=== PATIENT | female | born 1940 | race Caucasian/White ===

== ENCOUNTER 2016-03-09 08:35 | Day surgery (SDC) | payer MEDICARE, OTHER ==
[2016-03-09 09:17] LABS: ABSOLUTE NEUTROPHIL COUNT 7.7 K/mm3 (1.8-7.7); BASO # 0.1 K/mm3 (0.0-0.2); BASO % 0.5 % (0.2-1.0); EOS # 0.1 (0.0-0.5); EOS % 0.9 % (0.9-2.9); HEMATOCRIT 46.5 % (37.0-47.0); HEMOGLOBIN 15.8 gm/l (12.0-16.0); IMM NEUT # 0.1 K/mm3 (0-0.2); IMM NEUT% 0.7 % (0-1); LYMPH # 1.4 (1.0-4.8); LYMPH % 14.1 % (15-45); MEAN CELL VOLUME 87.2 fl (81.0-99.0); MEAN CORPUSCULAR HEMOGLOBIN 29.6 pg (27.0-31.0); MONO # 0.7 (0.0-0.8); MONO % 6.8 % (4-12); PLATELET COUNT 223 K/mm3 (130-400); RED CELL DISTRIBUTION WIDTH 13.1 % (11.5-14.5)
[2016-03-09 09:36] LABS: ALB/GLOB RATIO 1.3 (>1.0); CALCIUM 9.2 mg/dL (8.6-10.3)
[2016-03-09] MEDS ORDERED: SODIUM CHLORIDE 0.9% 1,000 ML ONE (09:39)
[2016-03-09] MEDS ORDERED: ONDANSETRON 4 MG/2ML 2 ML VIAL ONE ×2 (09:39→16:48)
[2016-03-09] MEDS ORDERED: MORPHINE SULFATE 4 MG/ML SYRINGE ONE (09:39)
[2016-03-09] MEDS ORDERED: PIPERACILLIN-TAZO PREMIX BAG 50 ML IV ONE (09:40)
[2016-03-09] MEDS ORDERED: MORPHINE SULFATE 10 MG/ML SYRINGE IV PRN ×2 (10:20→21:42)
[2016-03-09] MEDS ORDERED: ONDANSETRON 4 MG/2ML 2 ML VIAL IV PRN ×3 (10:20→19:52)
[2016-03-09] MEDS ORDERED: MORPHINE SULFATE 2 MG/ML SYRINGE IV PRN (10:20)
[2016-03-09] MEDS ORDERED: LACTATED RINGERS 1,000 ML ONE ×2 (10:38→16:27)
[2016-03-09] MEDS ORDERED: SODIUM CHLORIDE 0.9% FLUSH 10 ML ONE ×2 (10:39→16:26)
[2016-03-09] MEDS ORDERED: SODIUM CHLORIDE 0.9% 50 ML ONE ×2 (10:39→16:27)
[2016-03-09] MEDS ORDERED: BUPIVACAINE 0.5% W/EPI SDV 30 ML VIAL ONE ×2 (10:39→16:26)
[2016-03-09] MEDS ORDERED: IOPAMIDOL 300 (61%) 30 ML SDV ONE ×2 (10:39→16:27)
[2016-03-09] MEDS ORDERED: CEFOTAXIME SODIUM 1,000 MG VIAL ONE ×2 (10:39→16:26)
[2016-03-09] MEDS ORDERED: MORPHINE SULFATE 4 MG/ML SYRINGE IV PRN ×3 (11:29→21:41)
[2016-03-09] MEDS ORDERED: MORPHINE SULFATE 10 MG/ML SYRINGE ONE ×2 (12:37→17:56)
--- NOTE | 2016-03-09 13:47 | RAD ---
03/09/2016 1:43 PM CHEST-AP BEDSIDE History: Preop chest x-ray Comparison: 02/18/2016 Findings: Single AP view of the chest is obtained. The lungs are clear with out effusion or pneumothorax. The cardiomediastinal silhouette demonstrate mild cardiomegaly. The osseous structures are intact.. IMPRESSION: No acute intrathoracic process.
[2016-03-09] MEDS: PIPERACILLIN-TAZO PREMIX BAG 50 ML IV SCH ×2 (16:05→20:09)
[2016-03-09] MEDS ORDERED: FENTANYL 100 MCG/2 ML VIAL ONE ×2 (16:31→17:26)
[2016-03-09] MEDS ORDERED: PROPOFOL 20 ML IV ONE (16:48)
[2016-03-09] MEDS ORDERED: FAMOTIDINE 10 MG/ML 2ML VIAL ONE (16:48)
[2016-03-09] MEDS ORDERED: ROCURONIUM BROMIDE 10 MG/ML DOSE IV ONE (16:48)
[2016-03-09] MEDS ORDERED: METOCLOPRAMIDE HCL 5 MG/ML 2ML VIAL ONE (16:48)
[2016-03-09] MEDS ORDERED: LABETALOL HCL 5 MG/ML 20ML VIAL IV PRN (17:07)
[2016-03-09] MEDS ORDERED: ATROPINE SULFATE 0.4 MG/1 ML VIAL IV PRN (17:07)
[2016-03-09] MEDS ORDERED: MEPERIDINE 25 MG/ML SYRINGE IV PRN (17:07)
[2016-03-09] MEDS ORDERED: PROMETHAZINE HCL 25 MG/ML VIAL IM PRN (17:07)
[2016-03-09] MEDS ORDERED: NALOXONE HCL 0.4 MG/ML VIAL IV PRN (17:07)
[2016-03-09] MEDS ORDERED: LACTATED RINGERS 1,000 ML IV SCH (17:15)
[2016-03-09] MEDS ORDERED: LEVOTHYROXINE SODIUM 175 MCG TABLET PO SCH (19:52)
[2016-03-09] MEDS ORDERED: IBUPROFEN 200 MG TABLET PO PRN (19:52)
[2016-03-09] MEDS ORDERED: OXYCODONE HCL 5 MG TABLET PO PRN (19:52)
[2016-03-09 21:03] VITALS: BMI 33.2
[2016-03-09] MEDS ORDERED: PUMP TUBING ONE (22:19)
[2016-03-09] MEDS: PIPERACILLIN-TAZO PREMIX BAG 3.375 G in Premix (D5W) 50 ml 1 EACH IV SCH (22:25)
[2016-03-09] MEDS: LACTATED RINGERS 1,000 ML IV SCH (22:26)
--- NOTE | 2016-03-09 23:38 | HP ---
MARGA JEAN-BAPTISTE [facility] [id number] DATE OF SERVICE: 03/09/2016 CHIEF COMPLAINT: Abdominal pain. HISTORY OF PRESENT ILLNESS: Marga Jean-Baptiste is a 75-year-old female who presented to the emergency room with a four day history of abdominal pain. She was seen by her primary care physician three days ago. He ordered an ultrasound for today. The ultrasound results showed gallbladder wall thickening and pericholecystic fluid, consistent with acute cholecystitis. Because of those findings she was sent to the emergency room for evaluation. After evaluation by the emergency room physician, surgery was consulted. She reports that she has had some fever. She has had some nausea and dry heaves. No diarrhea. PAST MEDICAL HISTORY: 1. Hypertension. 2. Asthma. 3. Sleep apnea. PAST SURGICAL HISTORY: Includes: 1. Thyroid surgery. 2. Hysterectomy. 3. Tubal ligation. 4. Right arm surgery. 5. Tonsillectomy. CURRENT MEDICATIONS: 1. Cephalexin 500 by mouth four times a day. 2. Levsin 0.125 mg sublingual as needed. 3. Ibuprofen 400 mg every four to six hours as needed. 4. Synthroid 175 mcg daily. 5. Lisinopril 40 mg daily. 6. Symbicort. 7. Flonase. 8. Aspirin 81 mg daily. 9. Amlodipine 10 mg daily. ALLERGIES: Antihistamines. She says Benadryl, Celebrex, codeine, prednisone, sulfa, Tylenol and Vicodin. FAMILY HISTORY: Noncontributory. SOCIAL HISTORY: She is . Denies alcohol, tobacco or drug use. REVIEW OF SYSTEMS: Constitutional - possible fevers. HEENT - eyes, no complaints. Ears, nose and throat, no complaints. Cardiac - no complaints. Pulmonary - she has some asthma. She also has apparently had an episode of influenza a couple of weeks ago that completely resolved. GI - as above. - no complaints. Gynecologic - no complaints. Musculoskeletal - no complaints. Neurologic - no complaints. Endocrine - no complaints. Hematologic - no complaints. Psychiatric - no complains. PHYSICAL EXAMINATION: VITAL SIGNS: Temp 98.6. Pulse 104. Blood pressure 137/68. Respirations 18. GENERAL: She is awake and alert. She appears uncomfortable, but in no acute distress. HEENT: Head is normocephalic, atraumatic. Eyes, pupils equal. Sclera nonicteric. Oropharynx without exudate or erythema. She has her dentures out. NECK: Supple, without lymphadenopathy or thyromegaly. LUNGS: Clear to auscultation bilaterally. Normal respiratory effort. HEART: Regular rate and rhythm. No murmurs heard. ABDOMEN: Obese, soft and nondistended. She is tender in the right upper quadrant. She has a Guzman's sign. No masses are palpable, although there is some fullness up in that area. She has a low transverse scar, without obvious hernia. EXTREMITIES: Without cyanosis, clubbing or edema. NEUROLOGIC: She is alert and oriented. Sensation grossly intact throughout all extremities. PSYCHIATRIC: Shows no signs of anxiety or depression. She appears able to make informed medical decisions. LABORATORY: Sodium 135, potassium 3.4, chloride 102, carbon dioxide 24, BUN is 13, creatinine 1.0, glucose is 90, total bilirubin is 0.6, AST is 13, ALT is 12, alkaline phosphatase is 75, albumin 4.0, amylase 67 and lipase 51. White blood cell count is 10.0, hemoglobin 15.8 and platelets are 223. ASSESSMENT: 1. Acute acalculous cholecystitis. 2. Hypertension. 3. Asthma. 4. Sleep apnea. 5. Obesity. PLAN: I have recommended cholecystectomy for which we discussed the procedure of laparoscopic and possible open cholecystectomy. We discussed the risks of bleeding, infection, injury to the liver and common bile duct and the possible need to convert to an open procedure. She expressed understanding and gives informed consent. At present our hospital is without inpatient beds. I am told that we will have an inpatient bed available this afternoon. We will make sure that that is the case before taking her to surgery. If she has complications related to her hypertension and asthma, will consult with the hospitalists. We will see if she can get her CPAP to treat her sleep apnea. cc: Dr. Benjamin Arcos
[2016-03-10] MEDS: ALBUTEROL/IPRATROPIUM 2.5/0.5 MG 3 ML/EACH DOSE NEB SCH ×2 (01:16→06:26)
[2016-03-10] MEDS: MORPHINE SULFATE 2 MG/ML SYRINGE IV PRN ×4 (01:35→07:28)
[2016-03-10] MEDS: PIPERACILLIN-TAZO PREMIX BAG 3.375 G in Premix (D5W) 50 ml 1 EACH IV SCH ×2 (03:46→10:06)
[2016-03-10 06:32] LABS: HEMOGLOBIN 10.1 gm/l (12.0-16.0); MEAN CELL VOLUME 84.4 fl (81.0-99.0); MEAN CORPUSCULAR HEMOGLOBIN 26.6 pg (27.0-31.0); MEAN CORPUSCULAR HGB CONC 31.6 g/dl (33.0-37.0); RED CELL DISTRIBUTION WIDTH 15.2 % (11.5-14.5)
[2016-03-10 06:46] LABS: ALB/GLOB RATIO 1.1 (>1.0); ALBUMIN 2.9 gm/dL (3.5-5.7); CALCIUM 7.9 mg/dL (8.6-10.3)
[2016-03-10 07:44] VITALS: BP 155/75
[2016-03-10] MEDS: LACTATED RINGERS 1,000 ML IV SCH (08:32)
[2016-03-10] MEDS ORDERED: FORMOTEROL IH SCH (09:00)
[2016-03-10] MEDS ORDERED: BUDESONIDE IH SCH (09:00)
[2016-03-10] MEDS ORDERED: AMLODIPINE BESYLATE 5 MG TABLET PO SCH (09:00)
[2016-03-10] MEDS ORDERED: LISINOPRIL 20 MG TABLET PO SCH (09:00)
--- NOTE | 2016-03-10 10:01 | PDOC43 ---
- Subjective Subjective: Reports Pain Tolerable, Denies Nausea - Objective Vital Signs Temperature 98.6 F 03/10/16 07:40 Pulse Rate 100 03/10/16 07:40 Respiratory Rate 28 03/10/16 07:40 Blood Pressure 155/75 03/10/16 07:40 O2 Saturation by Pulse Oximetry 93 03/10/16 08:57 Oxygen Delivery Method Room Air Oxygen Flow Rate 0 Laboratory 03/10/16 06:00 03/10/16 06:00 03/10/16 06:00 RBC 3.79 L MCH 26.6 L MCHC 31.6 L RDW 15.2 H Calcium 7.9 L Total Protein 5.6 L Albumin 2.9 L Active Medication Orders Category Date Time Status Albuterol/Ipratropium 2.5/0.5 [Duoneb] Med 03/10/16 00:00 Active 3 ml NEB Q6HR Amlodipine Besylate [Norvasc] Med 03/10/16 09:00 Active 10 mg PO DAILY Ibuprofen [Advil] Med 03/09/16 19:52 Active 400 mg PO Q6H PRN Lactated Ringers 1,000 ml Med 03/09/16 19:52 Active IV 100 mls/hr Levothyroxine Sodium [Levothroid] Med 03/09/16 19:52 Active 175 mcg PO X1 Lisinopril [Prinivil] Med 03/10/16 09:00 Active 40 mg PO DAILY Morphine Sulfate Med 03/09/16 19:52 Active 1 - 6 mg IV Q1H PRN Morphine Sulfate Med 03/09/16 21:41 Active 1 - 6 mg IV Q1H PRN Morphine Sulfate Med 03/09/16 21:42 Active 1 - 6 mg IV Q1H PRN Ondansetron 4 mg/2ml Vial [Zofran] Med 03/09/16 19:52 Active 4 mg IV Q6H PRN Oxycodone HCl [Roxicodone] Med 03/09/16 19:52 Active 5 - 10 mg PO Q4H PRN Piperacillin-Tazo Premix Bag [Zosyn 3.375 G] 3.375 g Med 03/09/16 21:30 Active Premix (D5W) 50 ml 1 each IV Q6H Sodium Chloride 0.9% Flush [Normal Saline 10ml Flush] Med 03/09/16 21:02 Active 10 ml IV PRN PRN Sodium Chloride 0.9% Flush [Normal Saline 10ml Flush] Med 03/10/16 01:00 Active 10 ml IV Q8HR Intake and Output 03/09/16 03/10/16 03/11/16 06:59 06:59 06:59 Intake Total 2651 Output Total 795 Balance 1856 Tubes and Drains Output ALBERT #1 45 General: Alert, Oriented x3 Abdomen: Soft, Non-Distended Wound: Dressing Clean/Dry/Intact - Assessment/ Plan (1) Acute acalculous cholecystitis Status: Acute Assessment/ Plan: Labs and vitals stable. ALBERT nonbilious. Home with ALBERT. PO antibiotics.
--- NOTE | 2016-03-10 16:26 | OP ---
MARGA ROMERO [facility] MD [facility] [id number] DATE OF OPERATION: 03/09/2016 PREOPERATIVE DIAGNOSIS: Acute acalculous cholecystitis. POSTOPERATIVE DIAGNOSES: 1. Acute acalculous cholecystitis. 2. Intraabdominal adhesions. PROCEDURE: LAPAROSCOPIC CHOLECYSTECTOMY, WITH LYSIS OF ADHESIONS. SURGEON: Dr. Benjamin Figueroa LOCKET MAKER: PURA Dugan STUDENT: Mariel ANESTHESIA: Katia Anderson, BOX ICER, general endotracheal. INDICATIONS: This is a 75-year-old female admitted with a four day history of right upper quadrant abdominal pain, and ultrasound suggests acute acalculous cholecystitis. DESCRIPTION: With informed consent she was taken to the operating room where she was laid supine on the OR table. General endotracheal anesthetic was administered. The abdomen was prepped and draped in the usual fashion. Local anesthetic was administered below the umbilicus. Incision was made. The fascia was grasped with Violeta clamps and divided with curved Stubbs scissors. Sutures of SURGILON were placed on the fascial edges. Initial attempts of placing the Ronn port demonstrated that we were below the omentum. It appeared that we were dealing with adhesions of omentum to the anterior abdominal wall. I was able to get my camera to go through filming adhesions such that I could see up into the right upper quadrant. A 5 mm port was placed in the epigastric region and two other 5 mm ports were placed on the right lateral abdominal wall. From the lateral ports, I then performed an adhesiolysis using Endo Maldonado with limited electrocautery. I did that on the lower abdominal wall until we were able to visualize the Ronn port. Those adhesions extended down into the pelvis and I did not attempt to completely lyse those. The gallbladder was clearly edematous and erythematous. There were adhesions to it. It was thickened. I aspirated some clear fluid from the gallbladder. The fundus was then grasped and retracted cephalad. Adhesions to the gallbladder were taken-down with some blunt dissection. Eventually we were able to dissect the infundibulum away and retract this laterally. There was a fairly large cystic lymph node. I dissected this free. It appeared that the artery was probably directly posterior to that and I clipped that and transected it. The cystic duct was identified and dissected free. The duct was partially transected. It appeared that it was completely occluded. I attempted to place a cholangiogram catheter and was able to get it into the duct, but it would not feed. I attempted a cholangiogram, only had leakage. I ended-up pulling-out the catheter and putting two clips on the cystic duct stump, and it was completely transected. The gallbladder was then taken off of the liver bed using electrocautery. A moderate amount of blunt dissection was required. Once it was , it was placed within an ENDOCATCH bag and removed to the infraumbilical port site. The right upper quadrant was irrigated. The liver bed was cauterized. We appeared to have adequate hemostasis. I did use a couple of pieces of SURGICEL within the liver bed. Because of the difficulties with the cystic duct, I did decide to place a ALBERT drain. This was brought-out through the most inferolateral port site and placed below the liver bed. The ports were removed and the pneumoperitoneum was evacuated. The infraumbilical fascial defect was closed with [id number]-by-izzuo sutures of 0-SURGILON. The other fascial defects were small. All the skin wounds were closed with subcuticular 4-0 MONOCRYL. The drain was sutured to the skin with 2-0 nylon and placed to bulb suction. Mastisol and Steri-Strips were placed and all dressings were applied. She tolerated the procedure and was taken to the recovery room in stable condition. Note was made that needle, instrument and lap counts were reported as correct at the time of closure. cc: Dr. Danial Arcos
--- NOTE | 2016-03-14 13:38 | SURGPATH ---
[facility] [address] [place] [id number] Patient Name: MARGA ROMERO MR#: [id number] : 1940 Gender: F Specimen #: [id number] Collected: 03/09/2016 Received: 03/13/2016 Reported: 03/14/2016 Submitting Phys: FRANCIS MA Copy To Phys: FRANCIS VOGEL [facility] Clinical History / Pre-Operative Diagnosis: CHOLELITHIASIS Specimen Source / Surgical Procedure Performed: GALLBLADDER Interpretation: GALLBLADDER: - ACUTE CHOLECYSTITIS WITH CHOLELITHIASIS. Electronically Signed Out Keri Gotti M.D. Gross Description: The specimen is received in a formalin filled container labeled with the patient's name and "gallbladder". A previously incised gallbladder is 12.0 x 5 cm. The serosa is hemorrhagic and red-woodson with areas lightly covered with white kirby fibrinopurulent exudate. The gallbladder wall is thickened to 1 cm. The mucosa is red-woodson and velvety. The lumen contains a moderate amount of soft, friable hemorrhagic material and several irregular black calculi up to 0.4 cm. Three area representative sections are submitted in one cassette including a cross section through the cystic duct surgical margin, a central cross section and a longitudinal section through the fundus. Joanna Mcwilliams Microscopic Description: Sections of the gallbladder show acute inflammation, hemorrhage and ulceration of the gallbladder mucosa. The gallbladder wall is inflamed, thickened and edematous. There is no evidence of neoplasm. 1: [id number] K81.0
== END 2016-03-10 11:50 | disposition home or self-care (01) ==
LOC: ED 08:35 → SDC 10:32 → MS 20:20 → SDC 03-10 11:50
PROVIDERS: ATTEND Surgery
PROC: 0FT44ZZ Resection of Gallbladder, Percutaneous Endoscopic Approach (ICD-10-PCS; principal; 2016-03-09)
DX: K81.0 Acute cholecystitis (principal); K66.0 Peritoneal adhesions (postprocedural) (postinfection); I10 Essential (primary) hypertension; G47.30 Sleep apnea, unspecified; J45.909 Unspecified asthma, uncomplicated; E66.9 Obesity, unspecified; Z68.33 Body mass index [BMI] 33.0-33.9, adult; Z79.82 Long term (current) use of aspirin; Z88.8 Allergy status to other drugs, medicaments and biological substances; Z88.5 Allergy status to narcotic agent; Z88.2 Allergy status to sulfonamides; Z88.6 Allergy status to analgesic agent; R10.11 Right upper quadrant pain

== ENCOUNTER 2016-06-14 18:03 | Emergency (ER) | payer MEDICARE, OTHER ==
[2016-06-14] MEDS ORDERED: KETOROLAC TROMETHAMINE 15 MG/ML VIAL ONE (19:00)
[2016-06-14] MEDS ORDERED: ONDANSETRON 4 MG/2ML 2 ML VIAL ONE (19:00)
[2016-06-14] MEDS ORDERED: SODIUM CHLORIDE 0.9% 1,000 ML ONE (19:00)
[2016-06-14 19:30] LABS: ABSOLUTE NEUTROPHIL COUNT 4.7 K/mm3 (1.8-7.7); BASO # 0.1 K/mm3 (0.0-0.2); BASO % 0.8 % (0.2-1.0); EOS # 0.1 (0.0-0.5); EOS % 1.4 % (0.9-2.9); HEMATOCRIT 39.5 % (37.0-47.0); HEMOGLOBIN 12.6 gm/l (12.0-16.0); IMM NEUT% 0.4 % (0-1); LYMPH # 1.9 (1.0-4.8); LYMPH % 25.4 % (15-45); MEAN CORPUSCULAR HEMOGLOBIN 26.1 pg (27.0-31.0); MEAN CORPUSCULAR HGB CONC 31.9 g/dl (33.0-37.0); MEAN PLATELET VOLUME 10.1 fl (7.4-10.4); MONO # 0.6 (0.0-0.8); MONO % 8.6 % (4-12); NEUT % 63.4 % (43-75); PLATELET COUNT 181 K/mm3 (130-400); RED CELL DISTRIBUTION WIDTH 14.8 % (11.5-14.5)
[2016-06-14 19:40] LABS: ALB/GLOB RATIO 1.5 (>1.0); ALBUMIN 4.4 gm/dL (3.5-5.7); CALCIUM 9.7 mg/dL (8.6-10.3)
[2016-06-14 19:42] LABS: C-REACTIVE PROTEIN 1.4 mg/dl (<1.0)
[2016-06-14 20:02] LABS: PH,URINE 6.5 (5.0-8.0); URINE BILIRUBIN NEGATIVE (NEGATIVE); URINE BLOOD NEGATIVE (NEGATIVE); URINE GLUCOSE (UA) NEGATIVE (NEGATIVE); URINE LEUKOCYTE ESTERASE NEGATIVE (NEGATIVE); URINE NITRITE NEGATIVE (NEGATIVE); URINE PROTEIN NEGATIVE (NEGATIVE); URINE UROBILINOGEN NORMAL (0-1 mg/dl)
[2016-06-14 20:04] LABS: URINE APPEARANCE CLEAR; URINE COLOR YELLOW
--- NOTE | 2016-06-14 20:28 | RAD ---
CHEST 2 VIEWS HISTORY: Weakness and fever. Frontal and lateral chest radiographs dated 06/14/2016. COMPARISON: 03/09/2016. FINDINGS: FOCAL AIRSPACE OPACITY: Patchy right basilar density. Continued density of the left lung base. PLEURAL EFFUSION: None. CARDIOMEDIASTINAL SILHOUETTE: Borderline cardiomegaly, tortuous aorta. PNEUMOTHORAX: None identified. OSSEOUS STRUCTURES: Thoracic kyphosis and disc degeneration. UPPER ABDOMEN: Status post cholecystectomy. IMPRESSION: Airspace opacity at the right lung base, early pneumonia is possible. Recommend short-term follow-up assessment. Postcholecystectomy change. Thoracic spondylosis.
[2016-06-14] MEDS ORDERED: CEFTRIAXONE 1 GRAM DUPLEX 50 ML IV ONE (20:36)
[2016-06-14] MEDS ORDERED: DOXYCYCLINE HYCLATE 100 MG TABLET ONE (20:37)
== END 2016-06-14 21:51 | disposition home or self-care (01) ==
LOC: ED 18:03
DX: J18.9 Pneumonia, unspecified organism (principal); R11.2 Nausea with vomiting, unspecified; J45.909 Unspecified asthma, uncomplicated; I10 Essential (primary) hypertension